=== PATIENT | female | born 1950 | race Caucasian/White ===

== ENCOUNTER → 2016-05-04 | Outpatient (CLI) | payer OTHER, MEDICAID ==
--- NOTE | 2016-05-05 10:54 | CPEEG ---
[f rep st] ELECTROENCEPHALOGRAM DATE OF STUDY: 05/04/2016 DATE OF INTERPRETATION: 05/05/2016. INTERPRETATION: Normal EEG during wakefulness and sleep. There were no potentially epileptogenic a bnormalities present during the recording. REPORT: This EEG contains 10-11 Hz alpha activity to the posterior head regions. There was no abno rmal activation at rest, during photic stimulation, or hyperventilation. The patient was drowsy thr ough the majority of the tracing and intermittently fell asleep throughout the study. During drowsi ness, the patient had bursts of drowsiness and bitemporal theta transients consistent with normal dr owsy patterns. There was no abnormal activation during drowsiness, sleep, or during times of arousa l. /[id number]/MODL
== END ==
LOC: FCPNEURO 13:22
PROVIDERS: ATTEND Psychiatry & Neurology Neurology
DX: Z72.820 Sleep deprivation (principal)

== ENCOUNTER 2016-09-29 20:37 | Emergency (ER) | payer OTHER, MEDICAID ==
[2016-09-29 20:41] VITALS: PULSE 95; RESP 18; TEMP 97.9; O2SAT 97
--- NOTE | 2016-09-29 21:57 | EDPHY ---
H & P Smoking Status: Current every day smoker Time Seen by Provider: 09/29/16 21:28 HPI/ROS: CHIEF COMPLAINT: Fall, left shoulder injury HISTORY OF PRESENT ILLNESS: 65-year-old female presents to the emergency department by private vehicle complaining of injury to her left shoulder. Patient was at home and tripped over some suitcases on her floor and fell injuring her left shoulder. She did not hit her head or lose consciousness. She is right-hand dominant. She has pain isolated to her left shoulder which is especially worse with movement. She denies numbness or tingling in her fingers, pain in the elbow or wrist. REVIEW OF SYSTEMS: Constitutional: No fever, no chills. Eyes: No double or blurry vision. ENT: No sore throat. Respiratory: No cough, no shortness of breath. Cardiac: No chest pain. Gastrointestinal: No abdominal pain, vomiting or diarrhea. Genitourinary: No dysuria. Musculoskeletal: No neck or back pain. Skin: No rashes. Neurological: No headache. (Juanita Smart) Past Medical/Surgical History: Orthopedic surgeries (Juanita Smart) Social History: Single and lives in [place] (Juanita Smart) Physical Exam: General Appearance: Alert, no distress. No visible signs of trauma to her head. Mentating normally and answering questions appropriately. Eyes: Pupils equal and round. Extraocular motions are all intact. ENT: Mouth: Mucous membranes moist. Respiratory: No wheezing, rhonchi, or rales, lungs are clear to auscultation. Cardiovascular: Regular rate and rhythm. Gastrointestinal: Abdomen is soft and nontender, no masses, no rebound or guarding, bowel sounds normal. Neurological: Alert and oriented x 3, cranial nerves II through XII grossly intact Skin: Warm and dry, no rashes. Musculoskeletal: Nontender to palpate along the cervical, thoracic or lumbar spine. Neck is supple. Extremities: Limited range of motion of the left shoulder secondary to pain. She has mild pain with palpation to the distal aspect of her left clavicle. Neurovascularly intact. Psychiatric: Patient is oriented X 3, there is no agitation. (Juanita Smart) Constitutional: Initial Vital Signs Temperature (C) 36.6 C 09/29/16 20:38 Heart Rate 95 08/15/17 20:38 Respiratory Rate 18 09/29/16 20:38 Blood Pressure 145/88 H 09/29/16 20:38 O2 Sat (%) 97 09/29/16 20:38 O2 Delivery Mode Room Air Allergies/Adverse Reactions: acetaminophen [From Vicodin] Allergy (Verified 01/05/15 22:03) aspirin [From Percodan] Allergy (Verified 09/29/16 20:42) Vomiting codeine [Codeine] Allergy (Verified 01/05/15 22:03) hydrocodone bitartrate [From Vicodin] Allergy (Verified 01/05/15 22:03) oxycodone [From Percocet] Allergy (Verified 09/29/16 20:42) Vomiting Home Medications: Medication Instructions Recorded NK [No Known Home Meds] 10/17/14 Medical Decision Making Procedures: Patient was placed in a sling and examined post application in good placement with normal [employer]. (Juanita Smart) ED Course/Re-evaluation: The patient was evaluated and managed by the physician's entry level assistant manager. My cosignature indicates that I reviewed the chart and I agree with the findings and plan of care as documented. I am the secondary supervising physician. ( Aaliyah Jackson) 65-year-old female presents to the emergency department after she sustained a mechanical fall injuring her left shoulder. X-rays reveal distal clavicle fracture as well as possible avulsion fracture off the glenoid. She was placed in a sling and given orthopedic referral. Do not think further imaging is necessary. The patient is neurovascularly intact. She is comfortable being discharged and follow up with orthopedic physician this week or early the following week. (Juanita Smart) Differential Diagnosis: Including but not limited to fracture, dislocation, contusion, sprain (Juanita Smart) - Data Points Medications Given: Discontinued Medications Ibuprofen (Motrin) 800 mg PO EDNOW ONE Stop: 09/29/16 23:16 Last Admin: 09/29/16 23:18 Dose: 800 mg Departure - Departure Disposition: Home, Routine, Self-Care Clinical Impression: Closed left clavicular fracture Qualifiers: Encounter type: initial encounter Clavicle location: lateral end Fracture alignment: nondisplaced Qualified Code(s): S42.035A - Nondisplaced fracture of lateral end of left clavicle, initial encounter for closed fracture Glenoid fracture of shoulder Qualifiers: Encounter type: initial encounter Fracture type: closed Laterality: left Qualified Code(s): S42.142A - Displaced fracture of glenoid cavity of scapula, left shoulder, initial encounter for closed fracture; S42.152A - Displaced fracture of neck of scapula, left shoulder, initial encounter for closed fracture Condition: Good Instructions: Clavicle Fracture (ED) Additional Instructions: Sling for comfort and support. Ibuprofen 600mg every 8 hours for pain. Follow up with orthopedic surgeon as discussed next week. Referrals: Asif Larsen MD [Medical Doctor] - 5-7 days, call for appt. (Orthopedic surgeon on-call)
[2016-09-29] MEDS ORDERED: IBUPROFEN 200 MG TAB PO ONE (23:15)
[2016-09-29 23:21] VITALS: BP 130/80
== END 2016-09-29 23:22 | disposition home or self-care (01) ==
DX: S42.035A Nondisplaced fracture of lateral end of left clavicle, initial encounter for closed fracture (principal); S42.142A Displaced fracture of glenoid cavity of scapula, left shoulder, initial encounter for closed fracture; F17.200 Nicotine dependence, unspecified, uncomplicated; W01.0XXA Fall on same level from slipping, tripping and stumbling without subsequent striking against object, initial encounter; Y92.009 Unspecified place in unspecified non-institutional (private) residence as the place of occurrence of the external cause
CPT/HCPCS: 73030; 99283; A4565